=== PATIENT | male | born 1950 | race Caucasian/White ===

== ENCOUNTER 2019-08-30 16:12 | Outpatient (CLI) | payer MEDICARE, BC ==
--- NOTE | 2019-08-30 22:25 | RAD ---
CHEST THREE VIEWS: 08/30/19 Films were done in inspiration and expiration. The heart is normal in size and the lungs are clear. T here was no specific abnormality seen in expiration. Both lungs appeared to reduce in size appropriat [place]. There are no effusions. IMPRESSION: No acute findings. POS: HOME
== END 2019-08-30 16:13 | disposition home or self-care (01) ==
LOC: BURRAD 16:12
PROVIDERS: ATTEND Family Medicine
DX: T17.920A Food in respiratory tract, part unspecified causing asphyxiation, initial encounter (principal)
CPT/HCPCS: 71046